=== PATIENT | female | born 1945 | race Caucasian/White ===

== ENCOUNTER 2018-02-20 08:00 | Outpatient (CLI) | payer MEDICARE, BC | END 2018-02-20 08:01 | disposition home or self-care (01) | LOC: DTY/OP 08:00 | PROVIDERS: ATTEND Surgery | DX: E66.01 Morbid (severe) obesity due to excess calories (principal); E78.5 Hyperlipidemia, unspecified | CPT/HCPCS: 97802 ==

== ENCOUNTER 2018-03-06 15:21 | Outpatient (CLI) | payer MEDICARE, BC ==
[2018-03-06 16:48] LABS: Hemoglobin A1c 5.5 % (4.0-6.0)
[2018-03-06 16:49] LABS: #Basophils 0.1 thou/uL (0.0-0.2); #Eosinphils 0.1 thou/uL (0.0-0.7); #Lymphocytes 2.6 thou/uL (1.20-3.40); #Monocytes 0.6 thou/uL (0.11-0.59); #Neutrophils 3.3 thou/uL (1.40-6.50); %Basophils 0.8 % (0.0-1.0); %Eosinophils 2.2 % (0.0-10.0); %Lymphocytes 39.1 % (21.0-51.0); %Monocytes 9.2 % (0.0-10.0); %Neutrophils 48.7 % (42.0-75.0); Hemoglobin 14.1 g/dL (12.0-16.0); Mean Corpuscular HGB CONC 31.7 g/dL (32.0-36.0); Mean Corpuscular Hemoglobin 31.8 pg (27.0-31.0); Mean Platelet Volume 7.1 fL (7.4-10.4); Platelet Count 307 thou/uL (130-400); RBC Distribution Width 12.8 % (11.5-14.5); Red Blood Cell (RBC) Count 4.45 mill/uL (4.20-5.40); White Blood Cell (WBC) Count 6.7 thou/uL (4.8-10.8)
[2018-03-06 17:06] LABS: ALT (SGPT) 21 U/L (8-55); AST (SGOT) 27 U/L (5-34); Albumin 4.8 g/dL (3.4-4.8); Alkaline Phosphatase 52 U/L (40-150); Anion Gap 15 mmol/L (10-20); BUN (Urea Nitrogen) 23 mg/dL (9.8-20.1); Bilirubin, Direct 0.1 mg/dL (0.1-0.3); Bilirubin, Total 0.4 mg/dL (0.2-1.2); Calc. Creatinine Clearance 0 mL/min (70-130); Calcium 9.9 mg/dL (7.8-10.44); Carbon Dioxide 26 mmol/L (23-31); Chloride 103 mmol/L (98-107); Estimated GFR-MDRD 74; Globulin 2.7 g/dL (2.4-3.5); Glucose 94 mg/dL (83-110); Potassium 4.7 mmol/L (3.5-5.1); Protein, Total 7.5 g/dL (6.0-8.3); Sodium 139 mmol/L (136-145)
--- NOTE | 2018-03-06 20:00 | RAD ---
TWO VIEWS CHEST: 03/06/18 HISTORY: Preoperative chest radiograph. PA and lateral views of the chest is obtained. There is some ectasias of the aorta. The lungs are well aerated. No evidence of active intrathoracic disease seen. No evidence of effusions, pneumonia or pneumothorax seen. IMPRESSION: Normal two views chest. POS: [facility]
--- NOTE | 2018-03-11 16:53 | EKG ---
Test Reason : Blood Pressure : / mmHG Vent. Rate : 062 BPM Atrial Rate : 062 BPM P-R Int : 168 ms QRS Dur : 068 ms QT Int : 388 ms P-R-T Axes : 049 052 024 degrees QTc Int : 393 ms Normal sinus rhythm with sinus arrhythmia Nonspecific T wave abnormality Abnormal ECG No previous ECGs available Confirmed by COBY RIVERA (2) on 03/11/2018 4:52:34 PM Referred By: KRISTOPHER Confirmed By:COBY RIVERA
== END 2018-03-06 15:22 | disposition home or self-care (01) ==
LOC: LABBT 15:21
PROVIDERS: ATTEND Surgery
DX: Z01.818 Encounter for other preprocedural examination (principal); E78.5 Hyperlipidemia, unspecified; Z68.38 Body mass index [BMI] 38.0-38.9, adult
CPT/HCPCS: 71046; 80053; 80076; 83036; 85025; 93005; 93010

== ENCOUNTER 2018-03-06 16:30 | Inpatient (IN) | payer MEDICARE, BC ==
[2018-03-06 15:56] VITALS: BMI 36.6
[2018-03-13] MEDS ORDERED: CEFAZOLIN/Water 2 GM/20 ML SYRINGE ONE (06:14)
[2018-03-13] MEDS ORDERED: Heparin 5,000 UNITS/ML VIAL ONE (06:15)
[2018-03-13] MEDS ORDERED: Bupivacaine/Epinephrine 0.25% 30 ML VIAL ONE (06:56)
[2018-03-13] MEDS ORDERED: Fentanyl 250 MCG/5 ML VIAL ONE (06:57)
[2018-03-13] MEDS ORDERED: Meperidine HCl/PF 25 MG/ML VIAL SLOW IVP PRN (08:23)
[2018-03-13] MEDS ORDERED: Ondansetron HCl/PF 4 MG/2 ML Vial IVP PRN ×3 (08:23→11:05)
[2018-03-13] MEDS ORDERED: Fentanyl 100 MCG/2 ML VIAL ONE ×2 (09:07→09:39)
[2018-03-13] MEDS ORDERED: diphenhydrAMINE 50 MG/ML VIAL IVP PRN ×2 (09:49→11:05)
[2018-03-13] MEDS ORDERED: diphenhydrAMINE 50 MG/ML VIAL IM PRN (09:49)
[2018-03-13] MEDS ORDERED: Naloxone HCl 0.4 mg/ml Vial IV PRN (09:49)
[2018-03-13] MEDS ORDERED: diphenhydrAMINE 25 MG CAP PO PRN (09:49)
[2018-03-13] MEDS ORDERED: Morphine CADD 1 MG/ML CADD IVPB PRN (09:49)
[2018-03-13] MEDS ORDERED: D5 1/2 NS w/20 mEq KCL 1,000 ML ONE (09:56)
[2018-03-13] MEDS ORDERED: Communication Order-Pharmacy FS SCH (10:00)
--- NOTE | 2018-03-13 10:31 | OP ---
DATE OF PROCEDURE: 03/13/2018 PREOPERATIVE DIAGNOSES: 1. Morbid obesity, BMI 38. 2. Hyperlipidemia. POSTOPERATIVE DIAGNOSES: 1. Morbid obesity, BMI 38. 2. Hyperlipidemia. 3. Paraesophageal hiatal hernia. PROCEDURE: 1. Laparoscopic sleeve gastrectomy [place] staple line reinforcement, 38 [place] bougie. 2. Paraesophageal hiatal hernia repair without mesh or fundoplication. 3. EGD. SURGEON: Dr. Maurilio Jean Baptiste ANESTHESIA: General. ESTIMATED BLOOD LOSS: Minimal. COMPLICATIONS: None. SPECIMEN: Stomach. FINDINGS: Hiatal hernia. TECHNIQUE: The patient was taken to the operating room and placed supine on the table. After genera l anesthetic was obtained, arms and legs double strapped to bariatric table. OG tube was used to dec ompress the stomach. The abdomen was prepped and draped in a sterile fashion. Left subcostal 5-mm O ptiview trocar was placed in usual fashion. High-flow pneumoperitoneum was obtained. Left and right abdominal 12-mm ports as well as a right subcostal 5 mm port were placed under direct visualization. The patient was placed in reverse Trendelenburg position, 5 mm incision made at the xiphoid and Marisela collier's used to raise the liver off the GE junction. There was a hiatal hernia seen. Short gastric were taken down mid body of stomach to left yohannes of diaphragm. Left yohannes, posterior fundus, angle o f His is completely dissected. The gastrohepatic ligament is entered. The right yohannes was found and circumferential dissection of the esophagus was performed. The fundus is brought back out of the nat st into the abdomen. Short gastrics taken down to a distance of 6 cm proximal to the pylorus. Multi ple loads of an Wolverine stapling device used to form the sleeve. The first was a green load fired up a distance of 6 cm from the pylorus angled up towards the incisura. Multiple gold loads were then f ired up and the stomach was completely transected at the angle of His. The hiatal hernia defect is c losed using Ethibond suture and the tie knot system. Two sutures were placed posteriorly. There is no bleeding on the staple line. No injury to any intra-abdominal structures. The bougie was removed . EGD scope was passed into the esophagus, stomach to the level of the duodenum without obstruction. There was no stricture at the incisura. There was no bleeding or air leakage through the staple li ne. EGD scope was used to decompress the stomach, it was pulled and removed. All port sites infiltr ated using local anesthetic. The stomach had been removed from the left abdominal incision. This fa scial defect was closed using GraNee needle with Vicryl tie. All port sites were infiltrated using l ocal anesthetic. All ports are removed under camera visualization. Pneumoperitoneum was let down. The Nathansen removed under direct visualization without injury. Vicryl was used to close the fascia l defect from the left and right 12 mm ports, 4-0 Monocryl and Dermabond were used to close all skin incisions. The patient went to recovery in stable condition. All instrument counts, needle counts a nd lap counts are correct.
[2018-03-13] MEDS ORDERED: Hydrocodone-Acetamin 15 ML UDCUP PO PRN (11:05)
[2018-03-13] MEDS ORDERED: hydrALAZINE 20 MG/ML VIAL SLOW IVP PRN (11:05)
[2018-03-13] MEDS ORDERED: Dextrose 5% in Water 1,000 ML IV PRN (11:05)
[2018-03-13] MEDS ORDERED: Dextrose 50% Abboject 50 ML SYRINGE SLOW IVP PRN (11:05)
[2018-03-13] MEDS ORDERED: Promethazine HCl 25 MG/ML VIAL IM PRN (11:05)
[2018-03-13] MEDS ORDERED: Prevnar 13-Val Conj/PF 0.5 ML SYRINGE IM ONE (13:00)
[2018-03-13] MEDS ORDERED: Ondansetron HCl/PF 4 MG/2 ML Vial ONE (14:52)
[2018-03-13] MEDS ORDERED: Dexamethasone 20 MG/5 ML VIAL ONE (14:52)
[2018-03-13] MEDS ORDERED: ePHEDrine/0.9% NaCl/PF SYRINGE 50 mg/10 ml ONE (14:52)
[2018-03-13] MEDS ORDERED: PROPOFOL 200 MG/20 ML VIAL ONE (14:52)
[2018-03-13] MEDS ORDERED: Glycopyrrolate 0.2 MG/ML 5 ML SYRINGE ONE (14:52)
[2018-03-13] MEDS ORDERED: Lidocaine 1% PF 5 ML VIAL ONE (14:52)
[2018-03-13] MEDS: D5 1/2 NS w/20 mEq KCL 1,000 ML IV SCH ×2 (17:36→18:18)
[2018-03-13] MEDS ORDERED: Pantoprazole 40 MG VIAL IVP SCH (21:00)
[2018-03-13] MEDS ORDERED: Enoxaparin Sodium 40 MG/0.4 ML SYRINGE SC SCH (21:00)
[2018-03-14] MEDS: D5 1/2 NS w/20 mEq KCL 1,000 ML IV SCH (03:55)
[2018-03-14 05:03] LABS: Hemoglobin 12.3 g/dL (12.0-16.0); White Blood Cell (WBC) Count 10.3 thou/uL (4.8-10.8)
[2018-03-14 05:04] LABS: #Lymphocytes 1.6 thou/uL (1.20-3.40); #Monocytes 1.1 thou/uL (0.11-0.59); #Neutrophils 7.5 thou/uL (1.40-6.50); %Basophils 0.1 % (0.0-1.0); %Lymphocytes 15.6 % (21.0-51.0); %Monocytes 10.9 % (0.0-10.0); %Neutrophils 73.4 % (42.0-75.0); Mean Corpuscular HGB CONC 32.6 g/dL (32.0-36.0); Mean Corpuscular Hemoglobin 33.1 pg (27.0-31.0); Mean Platelet Volume 7.6 fL (7.4-10.4); Platelet Count 236 thou/uL (130-400); RBC Distribution Width 12.8 % (11.5-14.5)
[2018-03-14 05:25] LABS: Anion Gap 9 mmol/L (10-20); BUN (Urea Nitrogen) 7 mg/dL (9.8-20.1); Calc. Creatinine Clearance 116 mL/min (70-130); Calcium 7.9 mg/dL (7.8-10.44); Carbon Dioxide 26 mmol/L (23-31); Chloride 106 mmol/L (98-107); Estimated GFR-MDRD 87; Glucose 124 mg/dL (83-110); Potassium 4.5 mmol/L (3.5-5.1); Sodium 136 mmol/L (136-145)
[2018-03-14] MEDS ORDERED: Levothyroxine Sodium 100 MCG TAB PO SCH (06:00)
[2018-03-14 12:26] VITALS: BP 122/68; TEMP 98.9
--- NOTE | 2018-03-14 12:54 | DIS ---
ADMIT DIAGNOSIS: Morbid obesity. DISCHARGE DIAGNOSES: Morbid obesity and hiatal hernia. PROCEDURES: Laparoscopic sleeve, hiatal hernia repair by Dr. Jean Baptiste without complication. CONDITION AT DISCHARGE: Improved. STAFF: Dr. Maurilio Jean Baptiste. HOSPITAL COURSE: On postop day 1, the patient is tolerating the liquid diet. No nausea. She is amb ulatory. She will follow up with me in 2 weeks. Prescriptions already sent over to [facility] Lortab elixir, ondansetron ODT.
== END 2018-03-14 15:34 | disposition home or self-care (01) | DRG 620 ==
LOC: SURG A 03-13 05:52 → EEVIPCON 03-13 16:30
PROVIDERS: ADMIT Surgery; ATTEND Surgery
PROC: 0DB64Z3 Excision of Stomach, Percutaneous Endoscopic Approach, Vertical (ICD-10-PCS; principal; 2018-03-13)
PROC: 0BQT4ZZ Repair Diaphragm, Percutaneous Endoscopic Approach (ICD-10-PCS; 2018-03-13)
PROC: 0DJ08ZZ Inspection of Upper Intestinal Tract, Via Natural or Artificial Opening Endoscopic (ICD-10-PCS; 2018-03-13)
DX: E78.5 Hyperlipidemia, unspecified (principal); F73 Profound intellectual disabilities; N39.0 Urinary tract infection, site not specified; Z68.38 Body mass index [BMI] 38.0-38.9, adult; E66.01 Morbid (severe) obesity due to excess calories; K44.9 Diaphragmatic hernia without obstruction or gangrene; M81.0 Age-related osteoporosis without current pathological fracture; E55.9 Vitamin D deficiency, unspecified
CPT/HCPCS: 36415; 80048; 85025; 88307; 88312; 94760; C9113; J0131; J1100; J1644; J1650; J2001; J2274; J2405; J2704; J3010